=== PATIENT | male | born 1975 | race Caucasian/White ===

== ENCOUNTER 2019-10-28 18:09 | Inpatient (IN) | payer OTHER ==
[~2019-10-28] VITALS: Ht 167.7 cm; Wt 105.8 kg
[2019-10-28] MEDS ORDERED: ADENOSINE 6 MG/2 ML (ADENOCARD) VIAL IV ONE ×3 (18:26→18:45)
[2019-10-28] MEDS ORDERED: NS IV 1000 ML 1,000 ML ONE (18:31)
[2019-10-28 18:44] LABS: HEMATOCRIT 46 % (40-54); HEMOGLOBIN 16.4 G/DL (13.3-17.7); MEAN CORPUSCULAR HEMOGLOBIN 31 PG (25-34); MEAN CORPUSCULAR VOLUME 86 FL (80-99)
[2019-10-28 18:45] LABS: BASOPHILS % (AUTO) 1 % (0-10); EOSINOPHILS % (AUTO) 1 % (0-10); LYMPHOCYTES # (AUTO) 1.3 X 10^3 (1.0-4.0); LYMPHOCYTES % (AUTO) 19 % (12-44); MEAN CORPUSCULAR HGB CONC 36 G/DL (32-36); MEAN PLATELET VOLUME 10.5 FL (7.4-10.4); MONOCYTES # (AUTO) 0.1 X 10^3 (0.0-1.0); MONOCYTES % (AUTO) 1 % (0-12); NEUTROPHILS # (AUTO) 5.5 X 10^3 (1.8-7.8); NEUTROPHILS % (AUTO) 78 % (42-75); PLATELET COUNT 155 10^3/uL (130-400)
[2019-10-28] MEDS ORDERED: NS IV 1000 ML 1,000 ML IV SCH ×2 (18:45→19:30)
--- NOTE | 2019-10-28 18:50 | NUR ---
Poison control called per Dr. 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 Poison control given patient's symptoms, they state patient's symptoms likely are not due to poisoning, but will call the banquet set up person to verify.
--- NOTE | 2019-10-28 18:55 | Diagnostic Imaging Report ---
EXAMINATION: Chest radiograph, portable AP view. DATE: 10/28/2019 6:50 PM hours. INDICATION: 44-year-old male, shortness of breath, fever. Tachycardia. COMPARISON: None. FINDINGS: Heart size and mediastinal contours are unremarkable. There is no identified pneumothorax. There is no large pleural effusion. There is no identified focal airspace consolidation. IMPRESSION: No identified acute cardiopulmonary abnormality. Dictated by: Dictated on workstation # [id number]
[2019-10-28 19:00] LABS: BILIRUBIN,URINE NEGATIVE (NEGATIVE); CLARITY,URINE CLOUDY; COLOR,URINE YELLOW; GLUCOSE, URINE (UA) NEGATIVE (NEGATIVE); KETONES,URINE 1+ (NEGATIVE); LEUKOCYTE ESTERASE ,URINE 1+ (NEGATIVE); NITRITE,URINE POSITIVE (NEGATIVE); PROTEIN,URINE 3+ (NEGATIVE); RBC,URINE >100 /HPF
[2019-10-28 19:01] LABS: BACTERIA,URINE MODERATE /HPF; SQUAMOUS EPITHELIAL CELL,UR 0-2 /HPF; WBC,URINE >100 /HPF
--- NOTE | 2019-10-28 19:05 | ED General ---
General Chief Complaint: Cardiac/General Problems Stated Complaint: SOA,FEVER Nursing Triage Note: Patient reports he had sudden onset of shortness of breath while in [facility] today. States he also has burning with urination and frequency. Nursing Sepsis Screen: Possible Severe Sepsis Risk Source of Information: Patient, Old Records, RN/MD, RN Notes Reviewed History of Present Illness Date Seen by Provider: Oct 28, 2019 Time Seen by Provider: 18:05 Initial Comments This patient is a 44-year-old male presents to the emergency department with complaint of profuse sweating and palpitations fever. Patient states this started 15 minutes prior to arrival. Patient states she just had a normal day. Patient appears to have urinated on himself. Patient states she is normally healthy and has never had any issues like this. Initially we were evaluating the patient for possible SVT. The patient's heart rate around 180. Patient was given adenosine rapid IV push that had no effect on patient's heart rate. After further history the patient mentioned that his day was pretty normal day and that right before he came to the hospital he was at [facility] just getting a prescription filled of metformin. 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 This is concerning for possible cholinergic/anti-cholinergic overdose patient states he did get some of the spray as mouth essentially started having the symptoms. Nursing staff calling poison control. Patient is given IV fluids boluses at this time. We will do medical screening exam and evaluate. Further as needed Timing/Duration: 1/2 Hour Severity: Severe Associated Systoms: Diaphoresis, Shortness of Air Allergies and Home Medications Allergies Coded Allergies: No Known Drug Allergies (Unverified , 10/28/19) Patient Home Medication List Home Medication List Reviewed: Yes Review of Systems Review of Systems Constitutional: No no symptoms reported; see HPI; No chills; diaphoresis; No dizziness; fever; No malaise, No weakness, No weight gain, No weight loss, No other EENTM: No see HPI, No no symptoms reported, No ear discharge, No hearing loss, No ear pain, No blurred vision, No double vision, No eye pain, No tearing, No vision loss, No dental problems, No hoarseness, No mouth pain, No mouth swelling, No epistaxis, No nose congestion, No nose pain, No throat pain, No throat swelling, No other Respiratory: short of breath Cardiovascular: No no symptoms reported; see HPI; No chest pain, No edema, No Hx of Intervention; palpitations; No syncope, No vascular heart diseas, No other Genitourinary: No no symptoms reported; see HPI; No decreased output, No discharge, No dysuria, No frequency, No hematuria, No hesitancy; incontinence; No nocturia, No pain, No other Musculoskeletal: No no symptoms reported, No see HPI, No back pain, No gout, No joint pain, No joint swelling, No muscle pain, No muscle stiffness, No muscle cramps, No muscle twitching, No muscle weakness, No neck pain, No other Skin: No no symptoms reported, No see HPI, No change in color, No change in hair/nails, No dryness, No hx of skin cancer, No lesions, No lumps, No pruritus, No rash, No other All Other Systems Reviewed Negative Unless Noted: Yes Past Ziglkbh-Qifcub-Voxrjg Hx Patient Social History Recent Foreign Travel: No Contact w/Someone Who Travel: No Recent Infectious Disease Expo: No Physical Exam Vital Signs Vital Signs - First Documented 10/28/19 18:15 Temp 38.0 Pulse 165 Resp 28 B/P (MAP) 139/96 (110) Pulse Ox 97 O2 Delivery Room Air Capillary Refill : Less Than 3 Seconds Height, Weight, BMI Height: '" Weight: lbs. oz. kg; 33.00 BMI Method: General Appearance: No Apparent Distress, WD/WN HEENT: PERRL/EOMI, TMs Normal, Normal ENT Inspection, Pharynx Normal Neck: Full Range of Motion, Normal Inspection, Non Tender, Supple, Carotid Bruit Respiratory: Chest Non Tender, Lungs Clear, Normal Breath Sounds, No Accessory Muscle Use, No Respiratory Distress Cardiovascular: No Edema, No Gallop, No JVD, No Murmur, Normal Peripheral Pulses, Tachycardia Gastrointestinal: Normal Bowel Sounds, No Organomegaly, No Pulsatile Mass, Non Tender, Soft Neurologic/Psychiatric: Alert, Oriented x3, No Motor/Sensory Deficits, Normal Mood/Affect Skin: Normal Color, Warm/Dry Focused Exam Lactate Level 10/28/19 18:34: Lactic Acid Level 3.19*H Lactic Acid Level Laboratory Tests Test 10/28/19 18:34 Lactic Acid Level 3.19 MMOL/L (0.50-2.00) *H Progress/Results/Core Measures Suspected Sepsis Recent Fever Within 48 Hours: Yes Infection Criteria Present: Suspected New Infection New/Unexplained Altered Menta: No Sepsis Screen: Possible Severe Sepsis Risk SIRS Temperature: Pulse: 165 Respiratory Rate: 28 Laboratory Tests 10/28/19 18:34: White Blood Count 7.0 Blood Pressure 139 /96 Mean: 110 10/28/19 18:34: Lactic Acid Level 3.19*H Laboratory Tests 10/28/19 18:34: Creatinine 0.94, Platelet Count 155, Total Bilirubin 1.7H Results/Orders Lab Results Laboratory Tests Test 10/28/19 18:34 10/28/19 18:40 10/28/19 18:43 Range/Units White Blood Count 7.0 4.3-11.0 10^3/uL Red Blood Count 5.36 4.35-5.85 10^6/uL Hemoglobin 16.4 13.3-17.7 G/DL Hematocrit 46 40-54 % Mean Corpuscular Volume 86 80-99 FL Mean Corpuscular Hemoglobin 31 25-34 PG Mean Corpuscular Hemoglobin Concent 36 32-36 G/DL Red Cell Distribution Width 12.3 10.0-14.5 % Platelet Count 155 130-400 10^3/uL Mean Platelet Volume 10.5 H 7.4-10.4 FL Neutrophils (%) (Auto) 78 H 42-75 % Lymphocytes (%) (Auto) 19 12-44 % Monocytes (%) (Auto) 1 0-12 % Eosinophils (%) (Auto) 1 0-10 % Basophils (%) (Auto) 1 0-10 % Neutrophils # (Auto) 5.5 1.8-7.8 X 10^3 Lymphocytes # (Auto) 1.3 1.0-4.0 X 10^3 Monocytes # (Auto) 0.1 0.0-1.0 X 10^3 Eosinophils # (Auto) 0.0 0.0-0.3 10^3/uL Basophils # (Auto) 0.0 0.0-0.1 10^3/uL Sodium Level 135 135-145 MMOL/L Potassium Level 4.0 3.6-5.0 MMOL/L Chloride Level 97 L 98-107 MMOL/L Carbon Dioxide Level 20 L 21-32 MMOL/L Anion Gap 18 H 5-14 MMOL/L Blood Urea Nitrogen 9 7-18 MG/DL Creatinine 0.94 0.60-1.30 MG/DL Estimat Glomerular Filtration Rate > 60 BUN/Creatinine Ratio 10 Glucose Level 226 H 70-105 MG/DL Lactic Acid Level 3.19 *H 0.50-2.00 MMOL/L Calcium Level 9.9 8.5-10.1 MG/DL Corrected Calcium 8.5-10.1 MG/DL Total Bilirubin 1.7 H 0.1-1.0 MG/DL Aspartate Amino Transf (AST/SGOT) 28 5-34 U/L Alanine Aminotransferase (ALT/SGPT) 140 H 0-55 U/L Alkaline Phosphatase 142 H 40-136 U/L Troponin I < 0.30 <0.30 NG/ML Pro-B-Type Natriuretic Peptide 46.6 <75.0 PG/ML Total Protein 8.2 6.4-8.2 GM/DL Albumin 4.9 H 3.2-4.5 GM/DL Salicylates Level < 5.0 L 5.0-20.0 MG/DL Acetaminophen Level < 10 L 10-30 UG/ML Serum Alcohol < 10 <10 MG/DL Urine Color YELLOW Urine Clarity CLOUDY Urine pH 6.0 5-[address] [place] 1.025 H 1.016-1.022 Urine Protein 3+ H NEGATIVE Urine Glucose (UA) NEGATIVE NEGATIVE Urine Ketones 1+ H NEGATIVE Urine Nitrite POSITIVE H NEGATIVE Urine Bilirubin NEGATIVE NEGATIVE Urine Urobilinogen 1.0 < = 1.0 MG/DL Urine Leukocyte Esterase 1+ H NEGATIVE Urine RBC (Auto) 3+ H NEGATIVE Urine RBC >100 H /HPF Urine WBC >100 H /HPF Urine Squamous Epithelial Cells 0-2 /HPF Urine Crystals NONE /LPF Urine Bacteria MODERATE H /HPF Urine Casts NONE /LPF Urine Mucus NEGATIVE /LPF Urine Culture Indicated YES Urine Opiates Screen NEGATIVE NEGATIVE Urine Oxycodone Screen NEGATIVE NEGATIVE Urine Methadone Screen NEGATIVE NEGATIVE Urine Propoxyphene Screen NEGATIVE NEGATIVE Urine Barbiturates Screen NEGATIVE NEGATIVE Ur Tricyclic Antidepressants Screen NEGATIVE NEGATIVE Urine Phencyclidine Screen NEGATIVE NEGATIVE Urine Amphetamines Screen NEGATIVE NEGATIVE Urine Methamphetamines Screen NEGATIVE NEGATIVE Urine Benzodiazepines Screen NEGATIVE NEGATIVE Urine Cocaine Screen NEGATIVE NEGATIVE Urine Cannabinoids Screen NEGATIVE NEGATIVE Glucometer 216 H 70-110 MG/DL My Orders Orders - VIVIANE WOODY MD Adenosine Injection (Adenocard Injection (10/28/19 18:26) Blood Culture (10/28/19 18:30) Cbc With Automated Diff (10/28/19 18:30) Comprehensive Metabolic Panel (10/28/19 18:30) Ed Iv/Invasive Line Start (10/28/19 18:30) Urinalysis (10/28/19 18:30) Chest 1 View Ap/Pa Only (10/28/19 18:30) Ekg Tracing (10/28/19 18:30) Lactic Acid Analyzer (10/28/19 18:30) Ns Iv 1000 Ml (Sodium Chloride 0.9%) (10/28/19 18:31) Adenosine Injection (Adenocard Injection (10/28/19 18:45) Adenosine Injection (Adenocard Injection (10/28/19 18:45) Ns Iv 1000 Ml (Sodium Chloride 0.9%) (10/28/19 18:45) Troponin I Fs (10/28/19 18:43) Probnp Fs (10/28/19 18:43) Creatine Kinase Mb (10/28/19 18:43) Drug Screen Stat (Urine) (10/28/19 18:43) Urine Culture (10/28/19 18:40) Alcohol (10/28/19 19:18) Acetaminophen (10/28/19 19:18) Salicylate (10/28/19 19:18) Creatine Kinase (10/28/19 19:19) Ns Iv 1000 Ml (Sodium Chloride 0.9%) (10/28/19 19:30) Ceftriaxone For Iv Use (Rocephin For I (10/28/19 19:30) Ns Iv 1000 Ml (Sodium Chloride 0.9%) (10/28/19 19:30) Acetaminophen Tablet/Caplet (Tylenol T (10/28/19 19:30) Blood Culture (10/28/19 19:42) Medications Given in ED Current Medications Medications Dose Ordered Sig/Ranjit Route Start Time Stop Time Status Last Admin Dose Admin Acetaminophen 650 mg ONCE ONCE PO 10/28/19 19:30 10/28/19 19:32 DC 10/28/19 19:48 650 MG Adenosine 6 mg ONCE ONCE IV 10/28/19 18:45 10/28/19 18:46 DC 10/28/19 18:39 6 MG Adenosine 12 mg ONCE ONCE IV 10/28/19 18:45 10/28/19 18:46 DC 10/28/19 18:42 12 MG Ceftriaxone Sodium 1000 mg/ Sterile Water 10 ml @ 200 mls/hr ONCE ONCE IV 10/28/19 19:30 10/28/19 19:32 DC 10/28/19 19:49 200 MLS/HR Vital Signs/I&O 10/28/19 18:15 Temp 38.0 Pulse 165 Resp 28 B/P (MAP) 139/96 (110) Pulse Ox 97 O2 Delivery Room Air Capillary Refill : Less Than 3 Seconds Blood Pressure Mean: 110 Progress Note : Time: 20:00 Progress Note Patient states feeling much better however the patient is still diaphoretic and incontinent. Concerning this patient is poison bide insecticides/pesticide. I did discuss at length with Dr. Reynoso. She agrees with current treatment IV fluid boluses will be run at 200 and hour patient has been given 1 g Rocephin due to abnormal urine. Patient be transferred to be admitted to the ICU at [facility] for continued monitoring and treatment. Dr. Reynoso will see patient upon arrival. ECG Initial ECG Impression Date: Oct 28, 2019 Initial ECG Impression Time: 18:19 Initial ECG Rate: 168 Initial ECG Rhythm: S.Tach Initial ECG Impression: Nonspecific Changes, SVT Comment Sinus tachycardia heart rate [address] changes otherwise negative. Departure Impression Primary Impression: Poisoning by chemical Additional Impressions: SVT (supraventricular tachycardia) Diaphoresis Urinary incontinence UTI (urinary tract infection) Lactic acidosis Disposition: ADMITTED INPATIENT Condition: Stable Admissions Decision to Admit Reason: Admit from ER (General) Decision to Admit/Date: Oct 28, 2019 Time/Decision to Admit Time: 20:00 Transfer Transfer Reason: Exceeds level of care Time Spoke to Accepting Phy: 20:[address] Reynoso Transfer Time: 20:02 Transfer Facility: [facility] Method of Transfer: EMS VIVIANE WOODY MD Oct 28, 2019 19:05
[2019-10-28 19:11] LABS: AMPHETAMINE SCREEN, URINE NEGATIVE (NEGATIVE); BARBITURATE SCREEN URINE NEGATIVE (NEGATIVE); BENZODIAZEPINES SCREEN URINE NEGATIVE (NEGATIVE); CANNABINOID SCREEN, URINE NEGATIVE (NEGATIVE); COCAINE SCREEN URINE NEGATIVE (NEGATIVE); METHADONE STAT NEGATIVE (NEGATIVE); METHAMPHETAMINE SCREEN URINE S NEGATIVE (NEGATIVE); OPIATE SCREEN URINE NEGATIVE (NEGATIVE); OXYCODONE STAT NEGATIVE (NEGATIVE); PROPOXYPHENE STAT NEGATIVE (NEGATIVE); TRICYCLIC ANTIDEPRESSANTS SCRE NEGATIVE (NEGATIVE)
[2019-10-28 19:17] LABS: BUN/CREATININE RATIO 10; CARBON DIOXIDE 20 MMOL/L (21-32); CHLORIDE 97 MMOL/L (98-107); CREATININE SERUM 0.94 MG/DL (0.60-1.30); GFR ESTIMATED > 60; SODIUM 135 MMOL/L (135-145)
[2019-10-28 19:18] LABS: ALANINE AMINOTRANSFERASE 140 U/L (0-55); ALBUMIN 4.9 GM/DL (3.2-4.5); ALKALINE PHOSPHATASE 142 U/L (40-136); BILIRUBIN,TOTAL 1.7 MG/DL (0.1-1.0); CALCIUM 9.9 MG/DL (8.5-10.1); GLUCOSE 226 MG/DL (70-105); TOTAL PROTEIN 8.2 GM/DL (6.4-8.2)
--- NOTE | 2019-10-28 19:19 | NUR ---
Poison control called at this time and stated that his advanced manufacturing engineer stated that his symptoms are not related to the spray. He stated that it could be from heat, to treat it like sepis, it could be COVID-19 or meningitis, but to treat it like sepsis. He stated it is not from spraying the cows. He stated if he found out what kind of spray to give them a call back. 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
[2019-10-28] MEDS ORDERED: cefTRIAXone FOR IV USE 1,000 MG in WATER (STERILE) FOR INJECTION 10 ML IV ONE (19:30)
[2019-10-28] MEDS ORDERED: NS IV 1000 ML 1,000 ML IV STA (19:30)
[2019-10-28] MEDS ORDERED: ACETAMINOPHEN 325 MG TABLET PO ONE (19:30)
[2019-10-28 19:43] LABS: ACETAMINOPHEN < 10 UG/ML (10-30); SALICYLATE < 5.0 MG/DL (5.0-20.0)
--- NOTE | 2019-10-28 20:31 | NUR ---
Son brought up phone with picture of chemicals he was spraying and it was cydectin (moxidectin). Dr. Viveros was informed.
--- NOTE | 2019-10-28 20:40 | NUR ---
I gave and son pt's car keys. The family was given an update at this time.
--- NOTE | 2019-10-28 20:54 | NUR ---
EMS left with patient at this time. Report was given and patient was transferred.
--- NOTE | 2019-10-28 20:55 | NUR ---
Second bag of fluid hanging and continuing in route to [place].
--- NOTE | 2019-10-28 20:56 | NUR ---
Called Claudia to inform her that Brittany did not answer call and to have her call when she gets a chance to receive report. She said she would give her the information. She was informed that the patient is on the way to [place] with EMS.
--- NOTE | 2019-10-28 21:33 | NUR ---
Called Senthil with Poison Control back and gave him updated vital signs, labs, patient status, number to ICU/Cardiac Step Down in [place]. He said he would follow up with [place].
[2019-10-28 22:11] LABS: CREATINE KINASE 68 U/L (30-200)
[2019-10-28 22:17] LABS: CREATINE KINASE MB 0.3 NG/ML (<6.6)
[2019-10-28 22:19] VITALS: BP 131/98
[2019-10-28] MEDS: NS IV 1000 ML 1,000 ML IV SCH (22:33)
[2019-10-28 23:00] VITALS: BP 141/108
[2019-10-28] MEDS ORDERED: ACETAMINOPHEN 325 MG TABLET ONE (23:48)
[2019-10-29] VITALS (14 sets, daily range): BP systolic 109–167; BP diastolic 68–126
[2019-10-29] MEDS: ACETAMINOPHEN 325 MG TABLET PO PRN ×2 (00:08→18:00)
--- NOTE | 2019-10-29 01:40 | NUR ---
POISON CONTROL CALLED THIS RN. VS GIVEN TO POISON CONTROL, PATIENT TACHYCARDIC WITH FEVER. POISON CONTROL STATES THEY DO NOT BELIEVE THIS IS RELATED TO THE PESTICIDE THE PATIENT USED AND RECOMMENDS RECHECKING LIVER LEVELS AND FOR COVID WELL MENINGITIS. THEY STATE THEY WILL CHECK ON HIM AGAIN IN THE MORNING.
[2019-10-29 03:25] LABS: BASOPHILS % (AUTO) 0 % (0-10); EOSINOPHILS % (AUTO) 0 % (0-10); HEMATOCRIT 42 % (40-54); HEMOGLOBIN 14.4 G/DL (13.3-17.7); LYMPHOCYTES # (AUTO) 0.6 X 10^3 (1.0-4.0); LYMPHOCYTES % (AUTO) 5 % (12-44); MEAN CORPUSCULAR HEMOGLOBIN 30 PG (25-34); MEAN CORPUSCULAR HGB CONC 35 G/DL (32-36); MEAN CORPUSCULAR VOLUME 87 FL (80-99); MONOCYTES # (AUTO) 0.8 X 10^3 (0.0-1.0); MONOCYTES % (AUTO) 6 % (0-12); NEUTROPHILS # (AUTO) 11.1 X 10^3 (1.8-7.8); NEUTROPHILS % (AUTO) 88 % (42-75); PLATELET COUNT 121 10^3/uL (130-400); WHITE BLOOD COUNT 12.6 10^3/uL (4.3-11.0)
[2019-10-29 03:42] LABS: ALBUMIN 3.8 GM/DL (3.2-4.5)
[2019-10-29 03:43] LABS: BAND NEUTROPHILS 17 %; CHLORIDE 106 MMOL/L (98-107); NEUTROPHILS % (MANUAL) 71 %; POTASSIUM 4.3 MMOL/L (3.6-5.0); SODIUM 138 MMOL/L (135-145)
[2019-10-29 03:44] LABS: CALCIUM 8.5 MG/DL (8.5-10.1); LYMPHOCYTES % (MANUAL) 7 %; MONOCYTES % (MANUAL) 5 %; STOMATOCYTES SLIGHT
[2019-10-29 03:45] LABS: GLUCOSE 202 MG/DL (70-105); TOTAL PROTEIN 6.7 GM/DL (6.4-8.2)
[2019-10-29 03:46] LABS: CARBON DIOXIDE 19 MMOL/L (21-32)
[2019-10-29 03:47] LABS: BILIRUBIN,TOTAL 1.1 MG/DL (0.1-1.0)
[2019-10-29 03:48] LABS: ALKALINE PHOSPHATASE 97 U/L (40-136); PHOSPHORUS 2.3 MG/DL (2.3-4.7)
[2019-10-29 03:49] LABS: CREATININE SERUM 1.07 MG/DL (0.60-1.30); GFR ESTIMATED > 60
[2019-10-29 03:50] LABS: BUN/CREATININE RATIO 9
[2019-10-29 03:51] LABS: MAGNESIUM 1.5 MG/DL (1.6-2.4)
[2019-10-29 03:52] LABS: ALANINE AMINOTRANSFERASE 108 U/L (0-55)
[2019-10-29] MEDS ORDERED: MAGNESIUM 1 GM/100 ML IVPB 100 ML IV ONE (03:52)
[2019-10-29] MEDS: NS IV 1000 ML 1,000 ML IV SCH ×5 (04:11→23:21)
[2019-10-29] MEDS: MAGNESIUM 1 GM/100 ML IVPB 100 ML IV SCH ×3 (04:11→06:56)
[2019-10-29] MEDS: POTASSIUM CL 10MEQ/50ML IVPB 50 ML IV SCH (06:55)
[2019-10-29] MEDS: KCL 20 MEQ TAB (K-DUR) PO SCH (06:56)
--- NOTE | 2019-10-29 08:10 | NUR ---
POISON CONTROL CALLED TO CHECK ON PATIENT, THEY FEEL THE PESTICIDE THE PATIENT CAME IN CONTACT WITH IS NOT RELATED TO PT'S CURRENT SYMPTOMS. POISON CONTROL WILL FOLLOW UP WITH CURRENT TEAM OF PHYSICIAN CARING FOR PATIENT.
[2019-10-29] MEDS ORDERED: inSUlin ASPART (NovoLOG) 1 UNIT/0.01 ML (CHARGE PER UNIT) SC SCH (11:45)
--- NOTE | 2019-10-29 11:48 | History & Physical-Hospitalist ---
History of Present Illness HPI/Chief Complaint this is a 44-year-old male that presents to the [facility] emergency room with tachycardia and chills. 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 He had urinated using contaminated hands and felt that this contributed to the urinary burning and chills that he had the next 24 hours. at the time of my interview this morning he is awake and alert and feels much better. Heart rate is down to 110. Blood cultures show gram-negative rods urine culture shows that her than 10 to the fifth Escherichia coli. Sensitivit ies are pending. COVID screening is negative confirmation PCR is pending Source: patient Exam Limitations: no limitations Date Seen 10/29/19 Time Seen by a Provider: 11:00 Attending Physician Teresa Reynoso MD PCP Pascual Bender MD Referring Physician Date of Admission Oct 28, 2019 at 21:30 Home Medications & Allergies Home Medications Reviewed patient Home Medication Reconciliation performed by pharmacy medication reconciliations sales technician home theater and/or nursing. Patients Allergies have been reviewed. Allergies Allergies Coded Allergies No Known Drug Allergies (Unverified10/28/19) Past Zoyrgxt-Fwgktl-Mahyff Hx Past Med/Social Hx: Reviewed Nursing Past Med/Soc Hx Patient Social History Marrital Status: Employed/Student: employed Alcohol Use: Denies Use Recreational Drug Use: No Smoking Status: Never a Smoker 2nd Hand Smoke Exposure: No Recent Foreign Travel: No Contact w/other who traveled: No Recent Hopitalizations: No Recent Infectious Disease Expo: No Seasonal Allergies Seasonal Allergies: No Past Medical History Endocrine: Diabetes, Non-Insulin dep Family History No Pertinent Family Hx Review of Systems Constitutional: see HPI, chills, diaphoresis, fever EENTM: no symptoms reported Respiratory: no symptoms reported Cardiovascular: palpitations Gastrointestinal: no symptoms reported Genitourinary: dysuria, frequency, incontinence (urge) Musculoskeletal: no symptoms reported Skin: no symptoms reported Psychiatric/Neurological: No Symptoms Reported Physical Exam Physical Exam Vital Signs Vital Signs - First Documented 10/28/19 10/29/19 18:15 04:09 Temp 38.0 Pulse 165 Resp 28 B/P (MAP) 139/96 (110) Pulse Ox 97 O2 Delivery Room Air O2 Flow Rate 97.00 Capillary Refill : Less Than 3 Seconds Height, Weight, BMI Height: '" Weight: lbs. oz. kg; 37.05 BMI Method: General Appearance: No Apparent Distress, WD/WN HEENT: Normal ENT Inspection, Pharynx Normal Neck: Full Range of Motion, Normal Inspection, Non Tender, Supple Respiratory: Chest Non Tender, Lungs Clear, Normal Breath Sounds, No Accessory Muscle Use, No Respiratory Distress Cardiovascular: No Edema, No Gallop, No JVD, No Murmur, Normal Peripheral Pulses, Tachycardia Gastrointestinal: Normal Bowel Sounds, No Organomegaly, Non Tender, Soft Rectal: Deferred Back: Normal Inspection Extremity: Normal Capillary Refill, Normal Range of Motion, Non Tender, No Calf Tenderness Neurologic/Psychiatric: Alert, Oriented x3, No Motor/Sensory Deficits Skin: Normal Color, Warm/Dry Lymphatic: No Adenopathy Results Results/Procedures Labs Laboratory Tests 10/28/19 18:34 10/29/19 03:00 Patient resulted labs reviewed. Imaging: Reviewed Imaging Report Assessment/Plan Admission Diagnosis sepsis Urinary tract infection Type II diabetes Tachycardia secondary to number 1 Diaphoresis secondary to number 1 Elevated liver function secondary to number 1 and possible hepatic steatosis Plan for continued IV fluid hydration and antibiotics follow blood sugars closely Admission Status: Observation Clinical Quality Measures DVT/VTE Risk/Contraindication: Risk Factor Score Per Nursin RFS Level Per Nursing on Admit: 4+=Very High Copy Copies To 1: [facility] G[facility] MD Oct 29, 2019 11:48
[2019-10-29] MEDS: cefTRIAXone FOR IV USE 1,000 MG in WATER (STERILE) FOR INJECTION 10 ML IV SCH (21:00)
--- NOTE | 2019-10-29 22:00 | NUR ---
COVID TEST NEGATIVE, DR ALMONTE NOTIFIED, ORDERS RECEIVED TO TAKE PT OUT OF ISOLATION
[2019-10-30] VITALS (11 sets, daily range): BP systolic 130–178; BP diastolic 92–138
[2019-10-30] MEDS: ACETAMINOPHEN 325 MG TABLET PO PRN ×2 (00:36→07:46)
[2019-10-30] MEDS: NS IV 1000 ML 1,000 ML IV SCH ×2 (02:08→07:47)
[2019-10-30 03:46] LABS: BASOPHILS % (AUTO) 0 % (0-10); EOSINOPHILS # (AUTO) 0.1 10^3/uL (0.0-0.3); EOSINOPHILS % (AUTO) 1 % (0-10); HEMATOCRIT 38 % (40-54); HEMOGLOBIN 13.1 G/DL (13.3-17.7); LYMPHOCYTES # (AUTO) 1.3 X 10^3 (1.0-4.0); LYMPHOCYTES % (AUTO) 13 % (12-44); MEAN CORPUSCULAR HEMOGLOBIN 30 PG (25-34); MEAN CORPUSCULAR HGB CONC 35 G/DL (32-36); MEAN CORPUSCULAR VOLUME 87 FL (80-99); MEAN PLATELET VOLUME 11.1 FL (7.4-10.4); MONOCYTES # (AUTO) 0.7 X 10^3 (0.0-1.0); MONOCYTES % (AUTO) 7 % (0-12); NEUTROPHILS # (AUTO) 7.9 X 10^3 (1.8-7.8); NEUTROPHILS % (AUTO) 79 % (42-75); PLATELET COUNT 92 10^3/uL (130-400)
[2019-10-30 03:58] LABS: ALBUMIN 3.6 GM/DL (3.2-4.5); CHLORIDE 109 MMOL/L (98-107); POTASSIUM 3.9 MMOL/L (3.6-5.0); SODIUM 137 MMOL/L (135-145)
[2019-10-30 03:59] LABS: CALCIUM 8.5 MG/DL (8.5-10.1)
[2019-10-30 04:01] LABS: GLUCOSE 169 MG/DL (70-105); TOTAL PROTEIN 6.5 GM/DL (6.4-8.2)
[2019-10-30 04:02] LABS: BILIRUBIN,TOTAL 0.6 MG/DL (0.1-1.0); CARBON DIOXIDE 17 MMOL/L (21-32)
[2019-10-30 04:04] LABS: ALKALINE PHOSPHATASE 75 U/L (40-136); CREATININE SERUM 0.79 MG/DL (0.60-1.30); GFR ESTIMATED > 60; PHOSPHORUS 1.8 MG/DL (2.3-4.7)
[2019-10-30 04:05] LABS: BUN/CREATININE RATIO 9
[2019-10-30 04:07] LABS: ALANINE AMINOTRANSFERASE 75 U/L (0-55)
[2019-10-30] MEDS: POTASSIUM CL 10MEQ/50ML IVPB 50 ML IV SCH (04:08)
[2019-10-30] MEDS: KCL 20 MEQ TAB (K-DUR) PO SCH (04:09)
[2019-10-30] MEDS: MAGNESIUM 1 GM/100 ML IVPB 100 ML IV SCH (04:09)
--- NOTE | 2019-10-30 06:13 | Diagnostic Imaging Report ---
INDICATION: Sepsis. Compared 10/28/2019 FINDINGS: The lungs are clear. No failure, effusion or pneumothorax. IMPRESSION: Negative Dictated by: Dictated on workstation # [id number]
--- NOTE | 2019-10-30 10:16 | Progress Note - Hospitalist ---
Subjective HPI/CC On Admission Date Seen by Provider: Oct 30, 2019 Time Seen by Provider: 09:45 this is a 44-year-old male that presents to the [facility] emergency room with tachycardia and chills. 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 He had urinated using contaminated hands and felt that this contributed to the urinary burning and chills that he had the next 24 hours. at the time of my interview this morning he is awake and alert and feels much better. Heart rate is down to 110. Blood cultures show gram-negative rods urine culture shows that her than 10 to the fifth Escherichia coli. Sensitivities are pending. COVID screening is negative confirmation PCR is pending Subjective/Events-last exam patient is awake and alert and feels much better. He is not having any trouble passing his urine although he has a lot of frequency. He is anxious to go to the fourth floor. He has COVID negative. He has no specific complaints. Review of Systems Genitourinary: Frequency, Incontinence (resolved) Focused Exam Lactate Level 10/29/19 03:00: Lactic Acid Level 2.63*H 10/29/19 05:20: Lactic Acid Level 2.13*H 10/29/19 08:04: Lactic Acid Level 1.67 Objective Exam Vital Signs Vital Signs Date Time Temp Pulse Resp B/P (MAP) Pulse Ox O2 Delivery O2 Flow Rate FiO2 10/30/19 10:00 103 26 178/123 (141) 96 Room Air 10/30/19 08:00 37.2 10/29/19 04:09 97.00 Capillary Refill : Less Than 3 Seconds General Appearance: No Apparent Distress, WD/WN HEENT: Normal ENT Inspection Neck: Non Tender, Supple Respiratory: Chest Non Tender, Lungs Clear, Normal Breath Sounds, No Accessory Muscle Use, No Respiratory Distress Cardiovascular: No Edema, No Gallop, No Murmur, Normal Peripheral Pulses, Tachycardia Gastrointestinal: Normal Bowel Sounds, Non Tender, Soft Rectal: Deferred Back: Normal Inspection Extremity: No Pedal Edema Results/Procedures Lab Laboratory Tests 10/30/19 03:23 Patient resulted labs reviewed. Imaging: Reviewed Imaging Report Assessment/Plan Assessment and Plan Assess & Plan/Chief Complaint sepsis-severe secondary to urinary tract infection with positive blood cultures Urinary tract infection-Escherichia coli Type II diabetes-on sliding scale insulin Tachycardia secondary to number 1-improving Diaphoresis secondary to number 1-resolved Elevated liver function secondary to number 1 and possible hepatic steatosis thrombocytopenia-watch platelet count carefully not on Lovenox or heparin we'll transfer to the floor Clinical Quality Measures DVT/VTE Risk/Contraindication: Risk Factor Score Per Nursin RFS Level Per Nursing on Admit: 4+=Very High JEN ALMONTE MD Oct 30, 2019 10:16
[2019-10-30] MEDS: ENALAPRIL 5 MG (VASOTEC) TAB PO SCH (12:48)
--- NOTE | 2019-10-30 13:00 | NUR ---
CHART REVIEW DONE PRIOR TO ADMIT. DR. ALMONTE MADE AWARE OF ELEVATED BP.
--- NOTE | 2019-10-30 13:20 | NUR ---
AFTER CALLING REPORT TO CALVIN HUMMEL, PATIENT TRANSPORTED VIA W/C TO 4TH FLOOR WITHOUT DIFFICULTIES. ALL PATIENTS PERSONAL BELONGINGS WITH PATIENT AT TRANSFER. TELE SENT WITH PATIENT AND WILL BE PLACED AFTER SHOWER. CALVIN AWARE.
--- NOTE | 2019-10-30 13:20 | NUR ---
REC'D PER WC FROM ICU. SEE ASSESSMENT.
[2019-10-30] MEDS ORDERED: WATER (STERILE) FOR INJECTION 10 ML ONE (20:23)
[2019-10-30] MEDS ORDERED: cefTRIAXone 1,000 MG IV (ROCEPHIN) VIAL ONE (20:23)
[2019-10-30] MEDS: cefTRIAXone FOR IV USE 1,000 MG in WATER (STERILE) FOR INJECTION 10 ML IV SCH (20:30)
[2019-10-31] VITALS: BP 145/84
[2019-10-31 04:00] VITALS: BP 135/90
[2019-10-31 05:19] LABS: BASOPHILS % (AUTO) 1 % (0-10); EOSINOPHILS # (AUTO) 0.1 10^3/uL (0.0-0.3); EOSINOPHILS % (AUTO) 2 % (0-10); HEMATOCRIT 41 % (40-54); HEMOGLOBIN 14.3 G/DL (13.3-17.7); LYMPHOCYTES # (AUTO) 1.3 X 10^3 (1.0-4.0); LYMPHOCYTES % (AUTO) 23 % (12-44); MEAN CORPUSCULAR HEMOGLOBIN 30 PG (25-34); MEAN CORPUSCULAR HGB CONC 35 G/DL (32-36); MEAN CORPUSCULAR VOLUME 86 FL (80-99); MEAN PLATELET VOLUME 10.9 FL (7.4-10.4); MONOCYTES # (AUTO) 0.6 X 10^3 (0.0-1.0); MONOCYTES % (AUTO) 11 % (0-12); NEUTROPHILS # (AUTO) 3.8 X 10^3 (1.8-7.8); NEUTROPHILS % (AUTO) 64 % (42-75); PLATELET COUNT 128 10^3/uL (130-400); WHITE BLOOD COUNT 5.9 10^3/uL (4.3-11.0)
[2019-10-31 05:31] LABS: CHLORIDE 106 MMOL/L (98-107)
[2019-10-31 05:32] LABS: POTASSIUM 3.7 MMOL/L (3.6-5.0); SODIUM 137 MMOL/L (135-145)
[2019-10-31 05:33] LABS: CALCIUM 8.9 MG/DL (8.5-10.1); GLUCOSE 188 MG/DL (70-105)
[2019-10-31 05:35] LABS: CARBON DIOXIDE 20 MMOL/L (21-32)
[2019-10-31 05:37] LABS: CREATININE SERUM 0.96 MG/DL (0.60-1.30); GFR ESTIMATED > 60
[2019-10-31 05:38] LABS: BUN/CREATININE RATIO 11
[2019-10-31] MEDS: inSUlin ASPART (NovoLOG) 1 UNIT/0.01 ML (CHARGE PER UNIT) SC SCH ×2 (05:45→12:08)
[2019-10-31 08:00] VITALS: BP 138/92
[2019-10-31] MEDS: ENALAPRIL 5 MG (VASOTEC) TAB PO SCH (09:44)
[2019-10-31] MEDS ORDERED: CEFD300C3 PO (10:33)
[2019-10-31] MEDS ORDERED: ENLP5T PO (10:33)
--- NOTE | 2019-10-31 10:33 | Discharge Summary ---
Discharge Summary Hospital Course Was the Problem List Reviewed?: Yes Hospital Course Date of Admission: Oct 28, 2019 at 21:30 Admission Diagnosis : Family Physician/Provider: Pascual Bender MD Date of Discharge: 10/31/19 Discharge Diagnosis: UTI Tachycardia Poison exposure Hospital Course: Hospital Course: Pt had a short hospital course. 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 He then did not wash his hands, went to the bathroom, handled his penis and was convinced that he became poisoned by that contact with his skin. He was admitted , placed on aggressive IV fluids, moved down to 4th floor and continued antibiotics and bacteremia noted with E.coli matching the urine culture so Omnicef was initiated and he was discharged in improved condition. Labs and Pending Lab Test: Laboratory Tests 10/30/19 10:36: Glucometer 173H 10/30/19 16:41: Glucometer 187H 10/31/19 00:17: Glucometer 199H 10/31/19 04:44: White Blood Count 5.9, Red Blood Count 4.72, Hemoglobin 14.3, Hematocrit 41, Mean Corpuscular Volume 86, Mean Corpuscular Hemoglobin 30, Mean Corpuscular Hemoglobin Concent 35, Red Cell Distribution Width 13.1, Platelet Count 128L, Mean Platelet Volume 10.9H, Neutrophils (%) (Auto) 64, Lymphocytes (%) (Auto) 23, Monocytes (%) (Auto) 11, Eosinophils (%) (Auto) 2, Basophils (%) (Auto) 1, Neutrophils # (Auto) 3.8, Lymphocytes # (Auto) 1.3, Monocytes # (Auto) 0.6, Eosinophils # (Auto) 0.1, Basophils # (Auto) 0.0, Sodium Level 137, Potassium Level 3.7, Chloride Level 106, Carbon Dioxide Level 20L, Anion Gap 11, Blood Urea Nitrogen 11, Creatinine 0.96, Estimat Glomerular Filtration Rate > 60, BUN/Creatinine Ratio 11, Glucose Level 188H, Calcium Level 8.9 Microbiology 10/28/19 MRSA Screen - Final, Complete MRSA not isolated 10/28/19 Blood Culture - Preliminary, Resulted Escherichia coli 10/28/19 Urine Culture - Final, Complete Escherichia coli Assessment/Pt Instructions pcp 1 week Discharge Planning: <30 minutes discharge planning Discharge Instructions Discharge Diet: No Restrictions Activity as Tolerated: Yes Discharge Physical Examination Vital Signs Vital Signs Date Time Temp Pulse Resp B/P (MAP) Pulse Ox O2 Delivery O2 Flow Rate FiO2 10/31/19 09:50 98 Room Air 10/31/19 08:00 36.2 105 18 138/92 (107) 10/29/19 04:09 97.00 General Appearance: No Apparent Distress, WD/WN Respiratory: Normal Breath Sounds Cardiovascular: Regular Rate, Rhythm Neurologic/Psychiatric: Alert, Oriented x3 Allergies: Coded Allergies: No Known Drug Allergies (Unverified , 10/28/19) Discharge Summary Date of Admission Oct 28, 2019 at 21:30 Date of Discharge Discharge Date: Oct 31, 2019 Admission Diagnosis sepsis Urinary tract infection Type II diabetes Tachycardia secondary to number 1 Diaphoresis secondary to number 1 Elevated liver function secondary to number 1 and possible hepatic steatosis Plan for continued IV fluid hydration and antibiotics follow blood sugars closely Clinical Quality Measures DVT/VTE Risk/Contraindication: Risk Factor Score Per Nursin RFS Level Per Nursing on Admit: 4+=Very High OMAR ESCALANTE DO Oct 31, 2019 10:33
[2019-10-31 12:33] VITALS: BP 138/92
--- NOTE | 2019-10-31 13:03 | NUR ---
I WAS UNABLE TO COMPLETE THE MED REC DUE TO THE PATIENT BEING DISCHARGED.
--- NOTE | 2019-10-31 13:54 | NUR ---
"RD ASSESSMENT PMHx: DM PT INTERACTION: Pt was awake and pleasant during nutrition assessment. Pt states current appetite is good. Note avg PO intake 79% x2d, per chart review. Pt states following a regular diet at home, and has no issues with chewing/swallowing food. Pt states no recent issues with nausea, vomiting, constipation, or diarrhea. Note last BM was 10/29, and pt not currently on bowel regimen per chart review. Pt states no recent wt changes. Note unable to determine recent wt hx, per chart review. Pt states current DM management is good. Note unable to determine recent HbA1c, per chart review. ABNORMAL NUTRITION-RELATED LAB VALUES LOW: HIGH: glu 188 Est. kcal needs: 1600 kcal | 15 kcal/kg Est. Pro needs: 85 g Pro | 0.8 g Pro/kg PES STATEMENT: Given current PO intake and appetite, no nutrition diagnosis at this time (NO-1.1) INTERVENTION: Continue with current diet order of Regular diet. Would recommend switching to consistent CHO diet, for better glucose control. Discussed and reinforced previous DM education (Previous education not given by this RD). Discussed appropriate snacking and portion control. Pt verbalized understanding of information provided. Will continue to follow and reassess as pt needs, intake, and status change. Ernesto Mari, MS, RD, LD"
== END 2019-10-31 12:30 | disposition home or self-care (01) | DRG 872 ==
LOC: ER FS 18:12 → ICU 21:30 → 4TH 10-30 13:20
PROVIDERS: ADMIT Internal Medicine; ATTEND Internal Medicine
DX: A41.51 Sepsis due to Escherichia coli [E. coli] (principal); N39.0 Urinary tract infection, site not specified; I47.1 Supraventricular tachycardia; E87.2 Acidosis; R35.0 Frequency of micturition; R32 Unspecified urinary incontinence; E11.9 Type 2 diabetes mellitus without complications; D69.6 Thrombocytopenia, unspecified; Z77.098 Contact with and (suspected) exposure to other hazardous, chiefly nonmedicinal, chemicals; Z20.828 Contact with and (suspected) exposure to other viral communicable diseases
CPT/HCPCS: 36415; 71045; 80048; 80053; 80306; 80320; 80329; 81000; 82550; 82553; 82962; 83605; 83735; 83880; 84100; 84484; 85007; 85025; 85027; 87040; 87077; 87081; 87088; 87186; 87635; 93005

== ENCOUNTER 2021-03-25 15:37 | Emergency (ER) | payer OTHER ==
[~2021-03-25 15:37] MED LIST: CEFD300C3 PO; ENLP5T PO
[2021-03-25 15:57] LABS: BASOPHILS # (AUTO) 0.1 10^3/uL (0.0-0.1); BASOPHILS % (AUTO) 1 % (0-10); EOSINOPHILS # (AUTO) 0.2 10^3/uL (0.0-0.3); EOSINOPHILS % (AUTO) 2 % (0-10); HEMATOCRIT 44 % (40-54); HEMOGLOBIN 15.5 g/dL (13.3-17.7); LYMPHOCYTES # (AUTO) 3.6 10^3/uL (1.0-4.0); LYMPHOCYTES % (AUTO) 43 % (12-44); MEAN CORPUSCULAR HEMOGLOBIN 31 pg (25-34); MEAN CORPUSCULAR HGB CONC 36 g/dL (32-36); MEAN CORPUSCULAR VOLUME 86 fL (80-99); MEAN PLATELET VOLUME 10.3 fL (9.0-12.2); MONOCYTES # (AUTO) 0.5 10^3/uL (0.0-1.0); MONOCYTES % (AUTO) 6 % (0-12); NEUTROPHILS % (AUTO) 47 % (42-75); PLATELET COUNT 184 10^3/uL (130-400); WHITE BLOOD COUNT 8.4 10^3/uL (4.3-11.0)
[2021-03-25] MEDS ORDERED: NITROGLYCERIN 0.4 MG SL TABS BTL 25'S SL PRN (16:00)
[2021-03-25] MEDS ORDERED: ASPIRIN 81 MG CHEW (CHILDREN'S ASA) PO ONE (16:00)
--- NOTE | 2021-03-25 16:05 | Diagnostic Imaging Report ---
INDICATION: Chest pain. EXAMINATION: Portable chest at 03:54 p.m. FINDINGS: Heart size and pulmonary vascularity are normal. Lungs are clear. There are no effusions or pneumothoraces. IMPRESSION: No acute abnormalities in the chest. Dictated by: Dictated on workstation # [id number]
[2021-03-25 16:17] LABS: ALANINE AMINOTRANSFERASE 64 U/L (0-55); ALBUMIN 4.7 GM/DL (3.2-4.5); ALKALINE PHOSPHATASE 105 U/L (40-136); BILIRUBIN,TOTAL 0.5 MG/DL (0.1-1.0); BUN/CREATININE RATIO 11; CALCIUM 9.3 MG/DL (8.5-10.1); CARBON DIOXIDE 25 MMOL/L (21-32); CHLORIDE 103 MMOL/L (98-107); CREATININE SERUM 0.95 MG/DL (0.60-1.30); GFR ESTIMATED 102; GLUCOSE 143 MG/DL (70-105); LIPASE 58 U/L (8-78); MAGNESIUM 2.2 MG/DL (1.6-2.4); SODIUM 141 MMOL/L (135-145); TOTAL PROTEIN 7.6 GM/DL (6.4-8.2)
[2021-03-25 16:19] LABS: INR 0.9 (0.8-1.4); PROTHROMBIN TIME PATIENT 12.7 SEC (12.2-14.7)
[2021-03-25 17:38] LABS: BILIRUBIN,URINE NEGATIVE (NEGATIVE); CLARITY,URINE CLEAR; COLOR,URINE YELLOW; GLUCOSE, URINE (UA) NEGATIVE (NEGATIVE); KETONES,URINE NEGATIVE (NEGATIVE); LEUKOCYTE ESTERASE ,URINE NEGATIVE (NEGATIVE); NITRITE,URINE NEGATIVE (NEGATIVE); PROTEIN,URINE NEGATIVE (NEGATIVE)
[2021-03-25 17:42] LABS: BACTERIA,URINE NEGATIVE /HPF; RBC,URINE RARE /HPF; WBC,URINE RARE /HPF
[2021-03-25] MEDS ORDERED: PANTOPRAZOLE 40 MG (PROTONIX) VIAL IV ONE (17:45)
[2021-03-25 17:46] LABS: AMPHETAMINE SCREEN, URINE NEGATIVE (NEGATIVE); BARBITURATE SCREEN URINE NEGATIVE (NEGATIVE); BENZODIAZEPINES SCREEN URINE NEGATIVE (NEGATIVE); CANNABINOID SCREEN, URINE NEGATIVE (NEGATIVE); COCAINE SCREEN URINE NEGATIVE (NEGATIVE); METHADONE STAT NEGATIVE (NEGATIVE); METHAMPHETAMINE SCREEN URINE S NEGATIVE (NEGATIVE); OPIATE SCREEN URINE NEGATIVE (NEGATIVE); OXYCODONE STAT NEGATIVE (NEGATIVE); PROPOXYPHENE STAT NEGATIVE (NEGATIVE); TRICYCLIC ANTIDEPRESSANTS SCRE NEGATIVE (NEGATIVE)
[2021-03-25] MEDS ORDERED: meTOprolol 5 MG/5 ML (LOPRESSOR) VIAL IV ONE (18:45)
[2021-03-25] MEDS ORDERED: FAMOTIDINE 20MG/2ML IV (PEPCID) IVP ONE (18:45)
[2021-03-25] MEDS ORDERED: ENALAPRILAT 2.5 MG/2 ML (VASOTEC) VIAL IV ONE (18:45)
--- NOTE | 2021-03-25 19:27 | ED Cardiac General ---
History of Present Illness General Chief Complaint: Chest Pain Stated Complaint: CP,LT HAND PAIN,SOA,DIZZINESS Nursing Triage Note: Patient has presented to ER with cc of left sided chest pain for the last 3 days with some pain going into the left arm today. He reports some dizziness the past 2 days and some shortness of breath with activity. History of Present Illness Date Seen by Provider: Mar 25, 2021 Time Seen by Provider: 15:42 Initial Comments 45 yr M with PMH of HTN, GERD, and seasonal allergies, is here with c/o left sided lower chest pain which has been going on for the past 3 days, with radiation to left upper extremity today. Pt states he had some breathlessness on activity such as when he goes jogging. Pt did not take his blood pressure medication today ( Enalapril and Metoprolol). Pt states he forgets sometimes to take it. Denies fever, cough, abdominal pain, headache, palpitations, nausea, vomiting. 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 He is not a smoker and he does not drink alcohol. No known family history of cardiac diseases. Allergies and Home Medications Allergies Coded Allergies: No Known Drug Allergies (Unverified , 10/28/19) Patient Home Medication List Home Medication List Reviewed: Yes Cefdinir (Cefdinir) 300 Mg Capsule, 300 MG PO BID Prescribed by: OMAR ESCALANTE on 10/31/19 1033 Enalapril Maleate (Enalapril Maleate) 5 Mg Tablet, 5 MG PO DAILY Prescribed by: OMAR ESCALANTE on 10/31/19 1033 Review of Systems Review of Systems Constitutional: no symptoms reported EENTM: No Symptoms Reported Respiratory: No Symptoms Reported Cardiovascular: Chest Pain Gastrointestinal: No Symptoms Reported Genitourinary: No Symptoms Reported Musculoskeletal: no symptoms reported Skin: no symptoms reported Psychiatric/Neurological: No Symptoms Reported Endocrine: No Symptoms Reported Hematologic/Lymphatic: No Symptoms Reported Past Zczvqie-Bmiruy-Lozkkc Hx Patient Social History Tobacco Use?: No Use of E-Cig and/or Vaping dev: No Substance use?: No Alcohol Use?: Yes Alcohol Frequency: Once in a while Seasonal Allergies Seasonal Allergies: No Past Medical History Surgeries: No Respiratory: No Cardiac: No Neurological: No Genitourinary: No Gastrointestinal: No Musculoskeletal: No Endocrine: Yes Diabetes, Non-Insulin dep HEENT: No Cancer: No Psychosocial: No Integumentary: No Family Medical History No Pertinent Family Hx Physical Exam Vital Signs Vital Signs - First Documented 03/25/21 15:53 Temp 37.2 Pulse 98 Resp 16 B/P (MAP) 171/103 (125) Pulse Ox 99 O2 Delivery Room Air Capillary Refill : Height, Weight, BMI Height: '" Weight: lbs. oz. kg; 37.05 BMI Method: General Appearance: No Apparent Distress, Mild Distress HEENT: PERRL/EOMI, TMs Normal, Normal ENT Inspection Neck: Full Range of Motion, Normal Inspection, Non Tender Respiratory: Chest Non Tender, Lungs Clear, Normal Breath Sounds, No Accessory Muscle Use, No Respiratory Distress Cardiovascular: No Edema, No JVD, No Murmur, Normal Peripheral Pulses, Tachycardia Gastrointestinal: Normal Bowel Sounds, No Organomegaly, No Pulsatile Mass, Other (tenderness left side of chest near last 2 ribs) Extremity: Normal Capillary Refill, Normal Inspection, Normal Range of Motion, Non Tender, No Calf Tenderness Neurologic/Psychiatric: Alert, Oriented x3, No Motor/Sensory Deficits Skin: Normal Color, Warm/Dry Progress/Results/Core Measures Results/Orders Lab Results Laboratory Tests Test 03/25/21 15:46 03/25/21 17:23 Range/Units White Blood Count 8.4 4.3-11.0 10^3/uL Red Blood Count 5.08 4.30-5.52 10^6/uL Hemoglobin 15.5 13.3-17.7 g/dL Hematocrit 44 40-54 % Mean Corpuscular Volume 86 80-99 fL Mean Corpuscular Hemoglobin 31 25-34 pg Mean Corpuscular Hemoglobin Concent 36 32-36 g/dL Red Cell Distribution Width 12.2 10.0-14.5 % Platelet Count 184 130-400 10^3/uL Mean Platelet Volume 10.3 9.0-12.2 fL Immature Granulocyte % (Auto) 0 % Neutrophils (%) (Auto) 47 42-75 % Lymphocytes (%) (Auto) 43 12-44 % Monocytes (%) (Auto) 6 0-12 % Eosinophils (%) (Auto) 2 0-10 % Basophils (%) (Auto) 1 0-10 % Neutrophils # (Auto) 4.0 1.8-7.8 10^3/uL Lymphocytes # (Auto) 3.6 1.0-4.0 10^3/uL Monocytes # (Auto) 0.5 0.0-1.0 10^3/uL Eosinophils # (Auto) 0.2 0.0-0.3 10^3/uL Basophils # (Auto) 0.1 0.0-0.1 10^3/uL Immature Granulocyte # (Auto) 0.0 0.0-0.1 10^3/uL Prothrombin Time 12.7 12.2-14.7 SEC INR Comment 0.9 0.8-1.4 Activated Partial Thromboplast Time 29 24-35 SEC Sodium Level 141 135-145 MMOL/L Potassium Level 4.0 3.6-5.0 MMOL/L Chloride Level 103 98-107 MMOL/L Carbon Dioxide Level 25 21-32 MMOL/L Anion Gap 13 5-14 MMOL/L Blood Urea Nitrogen 10 7-18 MG/DL Creatinine 0.95 0.60-1.30 MG/DL Estimat Glomerular Filtration Rate 102 BUN/Creatinine Ratio 11 Glucose Level 143 H 70-105 MG/DL Calcium Level 9.3 8.5-10.1 MG/DL Corrected Calcium 8.5-10.1 MG/DL Magnesium Level 2.2 1.6-2.4 MG/DL Total Bilirubin 0.5 0.1-1.0 MG/DL Aspartate Amino Transf (AST/SGOT) 27 5-34 U/L Alanine Aminotransferase (ALT/SGPT) 64 H 0-55 U/L Alkaline Phosphatase 105 40-136 U/L Myoglobin 24.5 10.0-92.0 NG/ML Troponin I < 0.30 < 0.30 <0.30 NG/ML Total Protein 7.6 6.4-8.2 GM/DL Albumin 4.7 H 3.2-4.5 GM/DL Lipase 58 8-78 U/L Urine Color YELLOW Urine Clarity CLEAR Urine pH 7.0 5-9 Urine Specific [place] 1.010 L 1.016-1.022 Urine Protein NEGATIVE NEGATIVE Urine Glucose (UA) NEGATIVE NEGATIVE Urine Ketones NEGATIVE NEGATIVE Urine Nitrite NEGATIVE NEGATIVE Urine Bilirubin NEGATIVE NEGATIVE Urine Urobilinogen 0.2 < = 1.0 MG/DL Urine Leukocyte Esterase NEGATIVE NEGATIVE Urine RBC (Auto) NEGATIVE NEGATIVE Urine RBC RARE /HPF Urine WBC RARE /HPF Urine Squamous Epithelial Cells 2-5 /HPF Urine Crystals NONE /LPF Urine Bacteria NEGATIVE /HPF Urine Casts NONE /LPF Urine Mucus NEGATIVE /LPF Urine Culture Indicated NO Urine Opiates Screen NEGATIVE NEGATIVE Urine Oxycodone Screen NEGATIVE NEGATIVE Urine Methadone Screen NEGATIVE NEGATIVE Urine Propoxyphene Screen NEGATIVE NEGATIVE Urine Barbiturates Screen NEGATIVE NEGATIVE Ur Tricyclic Antidepressants Screen NEGATIVE NEGATIVE Urine Phencyclidine Screen NEGATIVE NEGATIVE Urine Amphetamines Screen NEGATIVE NEGATIVE Urine Methamphetamines Screen NEGATIVE NEGATIVE Urine Benzodiazepines Screen NEGATIVE NEGATIVE Urine Cocaine Screen NEGATIVE NEGATIVE Urine Cannabinoids Screen NEGATIVE NEGATIVE My Orders Orders - JESSICA MORENO MD Cbc With Automated Diff (03/25/21 15:50) Magnesium (03/25/21 15:50) Chest 1 View Ap/Pa Only (03/25/21 15:50) Ekg Tracing (03/25/21 15:50) Comprehensive Metabolic Panel (03/25/21 15:50) Myoglobin Serum (03/25/21 15:50) Protime With Inr (03/25/21 15:50) Partial Thromboplastin Time (03/25/21 15:50) O2 (03/25/21 15:50) Monitor-Rhythm Ecg Trace Only (03/25/21 15:50) Aspirin Chewable Tablet (Baby Aspirin Ch (03/25/21 16:00) Nitroglycerin 0.4 Mg Btl 25's (Nitrostat (03/25/21 16:00) Ed Iv/Invasive Line Start (03/25/21 15:50) Lipase (03/25/21 15:50) Troponin I Fs (03/25/21 15:50) Troponin I Fs (03/25/21 17:23) Ekg Tracing (03/25/21 17:23) Ua Culture If Indicated (03/25/21 17:23) Drug Screen Stat (Urine) (03/25/21 17:23) Pantoprazole Injection (Protonix Injecti (03/25/21 17:45) Enalaprilat Injection (Vasotec Injection (03/25/21 18:45) Famotidine Injection (Pepcid Injection) (03/25/21 18:45) Metoprolol Tartrate Injection (Lopressor (03/25/21 18:45) Medications Given in ED Current Medications Medications Dose Ordered Sig/Ranjit Route Start Time Stop Time Status Last Admin Dose Admin Aspirin 324 mg ONCE ONCE PO 03/25/21 16:00 03/25/21 16:01 DC 03/25/21 16:05 324 MG Enalaprilat 2.5 mg ONCE ONCE IV 03/25/21 18:45 03/25/21 18:46 DC 03/25/21 18:47 2.5 MG Famotidine 20 mg ONCE ONCE IVP 03/25/21 18:45 03/25/21 18:46 DC 03/25/21 18:46 20 MG Metoprolol Tartrate 5 mg ONCE ONCE IV 03/25/21 18:45 03/25/21 18:46 DC 03/25/21 18:52 5 MG Nitroglycerin 0.4 mg UD PRN SL 03/25/21 16:00 03/25/21 19:46 DC 03/25/21 16:05 0.4 MG Pantoprazole 40 mg ONCE ONCE IV 03/25/21 17:45 03/25/21 17:46 DC 03/25/21 17:48 40 MG Vital Signs/I&O 03/25/21 03/25/21 15:53 19:38 Temp 37.2 Pulse 98 89 Resp 16 15 B/P (MAP) 171/103 (125) 151/99 Pulse Ox 99 97 O2 Delivery Room Air Room Air Blood Pressure Mean: 125 Progress Progress Note : Progress Note 1. NONSPECIFIC CHEST PAIN WORK UP: - Troponin x 2 negative and EKG x2 unremarkable - ASA 324mg STAT and Nitrate x1 - CXR normal - other labs unremarkable - Advised to f/u with PCP and make appointment with track repairer helper 2. GERD: - Protonix and Famotidine iv given, and pt felt better and expelled a lot of gas - Avoid spicy, greasy foods 3. NONCOMPLIANCE WITH MEDICATIONS: HYPERTENSIVE URGENCY - Pt sometimes forgets to take his medications including his BP meds. He forgot to take ot today - Enalaprilat and Metoprolol iv in ER, heart rate was initially tachycardic in low 100's, but after medications it improved to 80's. BP improved with medica tion as well. Initial ECG Impression Date: Mar 25, 2021 Initial ECG Impression Time: 15:46 Initial ECG Rate: 94 Initial ECG Impression: Normal, Nonspecific Changes Initial ECG Comparisson: No Previous ECG Available EKG : Rate: 104 Rhythm: Normal Sinus Diagnostic Imaging Diagonstic Imaging: Xray Plain Films/CT/US/NM/MRI: chest Comments NAME: RIMA WOODY [facility] REC#: [id number] PT STATUS: REG ER : 1975 PHYSICIAN: JESSICA MORENO MD ADMIT DATE: 03/25/21/ER FS Signed Date of Exam:03/25/21 CHEST 1 VIEW AP/PA ONLY INDICATION: Chest pain. EXAMINATION: Portable chest at 03:54 p.m. FINDINGS: Heart size and pulmonary vascularity are normal. Lungs are clear. There are no effusions or pneumothoraces. IMPRESSION: No acute abnormalities in the chest. Dictated by: Dictated on workstation # [id number] Dict: 03/25/21 1601 Trans: 03/25/21 1645 [id number] Interpreted by: DWAIN CARMICHAEL MD Electronically signed by: DWAIN CARMICHAEL MD 03/25/21 1645 Reviewed: Reviewed by Me CP/AMI: Aspirin, B-Brittani, Nitrates Departure Impression Primary Impression: Gastroesophageal reflux disease Qualified Codes: K21.9 - Gastro-esophageal reflux disease without esophagitis Additional Impressions: Indigestion Chest pain, unspecified Qualified Codes: R07.9 - Chest pain, unspecified Noncompliance w/medication treatment due to intermit use of medication Disposition: 01 HOME, SELF-CARE Condition: Improved Departure-Patient Inst. Referrals: YOVANNY BENDER MD (PCP/Family) Primary Care Physician Patient Instructions: Chest Pain, Adult ED, Heart Healthy Diet, Acid Reflux and GERD in Adults (DC) Add. Discharge Instructions: Medication compliance important, take medication as prescribed - F/u with PCP and make appointment with track repairer helper - The patient was seen in the ED, and treated appropriately to presentation at a specific point in time. Patient is informed that there is a possibility that disease and illness can evolve and change in acuity rapidly or slowly after patient is discharged from the ER. Precautionary advice given to the patient for immediate return to ER if symptoms worsen or do not resolve, and to seek emergency care sooner rather than later. Pt also advised on the importance of PCP follow up and compliance with management and follow up plan. Pt verbally expressed understanding. All discharge instructions reviewed with patient and/or family. Voiced understanding. JESSICA MORENO MD Mar 25, 2021 19:27
[2021-03-25 19:38] VITALS: BP 151/99
== END 2021-03-25 19:39 | disposition home or self-care (01) ==
LOC: EDUNIT# 15:37 → ER FS 15:38
DX: K21.9 Gastro-esophageal reflux disease without esophagitis (principal); K30 Functional dyspepsia; R07.9 Chest pain, unspecified; R00.0 Tachycardia, unspecified; E11.9 Type 2 diabetes mellitus without complications; I10 Essential (primary) hypertension; Z91.14 Patient's other noncompliance with medication regimen
CPT/HCPCS: 36415; 71045; 80053; 80306; 81000; 83690; 83735; 83874; 84484; 85025; 85610; 85730; 93005

== ENCOUNTER → 2021-04-04 | Outpatient (CLI) | payer OTHER ==
--- NOTE | 2021-04-04 09:51 | Diagnostic Imaging Report ---
EXAMINATION: US Abdomen limited. TECHNIQUE: Multiple real-time grayscale images were obtained over the right upper quadrant in various projections. REASON FOR EXAM: Epigastric pain. COMPARISON: None. FINDINGS: The liver is normal in size and shape. There is increased echogenicity throughout the liver. There are no focal lesions. No intrahepatic biliary dilatation is present. The common bile duct is not dilated and measures 5 mm. The main portal vein is hepatopedal. No ascites is seen in the upper abdomen. There is no evidence of cholelithiasis, gallbladder wall thickening or pericholecystic fluid. Sonographic Alvarez's sign is negative. The visualized portion of the head of the pancreas are within normal limits. The body and tail of the pancreas are not well visualized due to overlying bowel gas. The visualized portions of the IVC and aorta appear normal. The right kidney measures approximately 11.0 cm in length and has a normal appearance. IMPRESSION: 1. No cholelithiasis or acute cholecystitis. 2. Hepatic steatosis. No focal hepatic lesions. Dictated by: Dictated on workstation # [id number]
== END ==
LOC: RAD FS 07:56
PROVIDERS: ATTEND Surgery
DX: K76.0 Fatty (change of) liver, not elsewhere classified (principal); R10.13 Epigastric pain
CPT/HCPCS: 76705

== ENCOUNTER → 2021-04-12 | Outpatient (CLI) | payer OTHER ==
[~2021-04-12] MED LIST changes: +CATHETER FLUSH 10 ML SYR IVP PRN
--- NOTE | 2021-04-12 12:16 | Diagnostic Imaging Report ---
INDICATION: Epigastric pain. TECHNIQUE: Patient was administered 5.4 mCi technetium 99m Choletec and imaging over the abdomen was performed. At 30 minutes, patient ingested Ensure and a gallbladder ejection fraction was calculated. Patient denied discomfort during the study. FINDINGS: There is homogeneous uptake of activity by the liver with prompt excretion of activity into the gallbladder and common duct. There is normal passage of activity into the small bowel. There is a small amount of gastric uptake noted, suggestive of bile reflux. Gallbladder ejection fraction is normal at 49%. IMPRESSION: 1. Patent cystic duct and common bile duct. 2. Normal gallbladder ejection fraction of 49%. 3. Mild gastric bile reflux. Dictated by: Dictated on workstation # [id number]
== END ==
LOC: CARD 10:00
PROVIDERS: ATTEND Surgery
DX: K21.9 Gastro-esophageal reflux disease without esophagitis (principal)
CPT/HCPCS: 78227